=== PATIENT | female | born 1990 | race Caucasian/White ===

== ENCOUNTER → 2017-03-17 | Outpatient (CLI) | payer OTHER ==
[~2017-03-17] MED LIST: EPP3/2 IM; MTR600X PO; MULT-506 PO; OXYC-57 PO; SPR28 PO
[2017-03-17 16:43] LABS: BASO % 1.2 %; BASO ABS # 0.08 K/uL (0-0.2); COMPLETE YES; EOS % 3.5 %; HEMATOCRIT 39.5 % (37-47); IG% 0.1 %; LYMPH % 32.1 %; LYMPH ABS # 2.21 K/uL (1.2-3.4); MEAN CELL VOLUME 92.7 fL (80-100); MEAN CORPUSCULAR HEMOGLOBIN 31.2 pg (25-34); MEAN CORPUSCULAR HGB CONC 33.7 g/dl (32-36); MEAN PLATELET VOLUME 10.3 fL (7.4-10.4); MONO % 7.1 %; PLATELET COUNT 270 K/uL (130-400); RED BLOOD COUNT 4.26 M/uL (4.2-5.4); WHITE BLOOD COUNT 6.89 K/uL (4.8-10.8)
== END | disposition home or self-care (01) ==
LOC: C.LAB1850 15:16
PROVIDERS: ATTEND Obstetrics & Gynecology
DX: Z01.818 Encounter for other preprocedural examination (principal)

== ENCOUNTER 2017-04-05 07:12 | Day surgery (SDC) | payer OTHER ==
[2016-12-10 18:28] LABS: BASO ABS # 0.06 K/uL (0-0.2); COMPLETE YES; EOS % 5.6 %; HEMATOCRIT 39.5 % (37-47); IG% 0.2 %; LYMPH % 39.9 %; MEAN CELL VOLUME 93.4 fL (80-100); MEAN CORPUSCULAR HEMOGLOBIN 31.7 pg (25-34); MEAN CORPUSCULAR HGB CONC 33.9 g/dl (32-36); MEAN PLATELET VOLUME 10.4 fL (7.4-10.4); MONO % 7.3 %; PLATELET COUNT 238 K/uL (130-400); RED BLOOD COUNT 4.23 M/uL (4.2-5.4); WHITE BLOOD COUNT 6.02 K/uL (4.8-10.8)
[2016-12-10 18:45] LABS: BLOOD UREA NITROGEN 13 mg/dl (7-18); BUN/CREATININE RATIO 16.5 (10-20); CARBON DIOXIDE 31 mmol/L (21-32); CHLORIDE 108 mmol/L (98-107); CREATININE 0.82 mg/dl (0.60-1.20); GLUCOSE 97 mg/dl (70-99); POTASSIUM 4.2 mmol/L (3.5-5.1); SODIUM 143 mmol/L (136-145)
[~2017-04-05] VITALS: Ht 157.5 cm; Wt 75.9 kg
[~2017-04-05 07:12] MED LIST changes: +LACTATED RINGER'S 1000ML 1,000 ML IV SCH; -MTR600X PO; -OXYC-57 PO
[2017-04-05 07:45] VITALS: BP 133/80; PULSE 63; TEMP 36.6; O2SAT 98; Ht 157.5 cm; Wt 75.9 kg
[2017-04-05 07:47] VITALS: BP 133/80; PULSE 63; TEMP 36.6; O2SAT 98
--- NOTE | 2017-04-05 07:56 | History & Physical Bridge Note ---
H&P Re-Evaluation Bridge Note: I have examined the patient, reviewed the History & Physical and in the interval since the performance of the History & Physical I have noted the following changes of clinical significance: No changes noted
[2017-04-05] MEDS ORDERED: MIDAZOLAM HCL 1 MG/ML 2ML VIAL ONE (08:08)
[2017-04-05] MEDS ORDERED: DEXAMETHASONE SOD INJ 4 MG/ML VIAL ONE (08:08)
[2017-04-05] MEDS ORDERED: PROPOFOL IV EMULSION 10 MG/ML 20 ML VIAL IV ONE (08:08)
[2017-04-05] MEDS ORDERED: FENTANYL CITRATE INJ 50 MCG/1 ML 2 ML VIAL ONE ×3 (08:08→09:43)
[2017-04-05] MEDS ORDERED: ONDANSETRON INJ 2 MG/ML 2 ML VIAL ONE (08:08)
[2017-04-05] MEDS ORDERED: LIDOCAINE HCL 2% 2 ML VIAL (20MG/ML) ONE (08:08)
[2017-04-05] MEDS ORDERED: BUPIVACAINE 0.5 % 5 MG/1 ML MPF 30ML VIAL ONE (08:24)
[2017-04-05] MEDS ORDERED: ATROPINE SULFATE 0.1 MG/ML 5ML SYR IV PRN (09:00)
[2017-04-05] MEDS ORDERED: EpHEDrine SULFATE INJ 50 MG/ML AMP IV PRN (09:00)
[2017-04-05] MEDS ORDERED: FENTANYL CITRATE INJ 50 MCG/1 ML 2 ML VIAL IV PRN (09:00)
[2017-04-05] MEDS ORDERED: ONDANSETRON INJ 2 MG/ML 2 ML VIAL IV PRN ×2 (09:00→09:30)
[2017-04-05] MEDS ORDERED: SODIUM CHLORIDE 0.9% 1000ML 1,000 ML IV SCH (09:22)
[2017-04-05] MEDS ORDERED: OXYC-57 PO (09:24)
[2017-04-05] MEDS ORDERED: MTR600X PO (09:24)
--- NOTE | 2017-04-05 09:25 | Discharge Instructions ---
Discharge Instructions Date of Service Apr 05, 2017. Admission Reason for Admission: Pelvic Pain Discharge Discharge Diagnosis / Problem: pelvic pain Discharge Goals Goal(s): Routine recovery after surgery Activity Recommendations Activity Limitations: per Instructions/Follow-up section . Instructions / Follow-Up Instructions / Follow-Up ACTIVITY RECOMMENDATIONS: * Rest the first 2-3 days. You should be back to your normal activity levels by day 3. * No heavy lifting for 2 weeks. * No intercourse, tampons or douching for 1-2 weeks. * You may shower the next day. * Do not drive anytime that you are taking narcotic pain medicines. RETURN TO SCHOOL/WORK: * May return to school or work after 2-3 days. DIET: Nausea may occur in the immediate post-operative period. If so, take clear liquids such as tea, bouillon, apple juice until all nausea has subsided, then resume usual diet. MEDICATIONS: Resume previous medications unless instructed otherwise by your surgeon. Ibuprofen 200mg 2-3 tablets every 4-6 hours as needed -- OR -- Aleve 2 tablets every 8-12 hours as needed for post-operative discomfort Medications are over the counter. Tylenol may be used if above medications are contraindicated or not preferred. Medication should be taken with food or milk. Do not take on an empty stomach. SPECIAL CARE INSTRUCTIONS: * Check temperature twice daily for one week. report any elevation over 101 degrees. * You may experience some vagina spotting and/or bleeding. This is normal for 1 -2 weeks and should not be heavier than a normal period. If it is unusual in amount, call your physician. * Post-operative discomfort may consist of a sore throat, a "bloated" feeling and pain in the shoulders. these are normal symptoms, which usually only last for 2-3 days. * Remove band-aids tomorrow and shower. There is no need to replace band-aids unless there is drainage or discomfort. FOLLOW UP VISIT: Call your doctor's office for a post-operative 2 week visit if not already scheduled. Current Hospital Diet Patient's current hospital diet: Discharge Diet Recommended Diet: Regular Diet Procedures Procedures Performed: Diagnostic Laparoscopy Pending Studies Studies pending at discharge: no Medical Emergencies . Who to Call and When: Medical Emergencies: If at any time you feel your situation is an emergency, please call 911 immediately. . Non-Emergent Contact Non-Emergency issues call your: Online Advertising Director . . "Provider Documentation" section prepared by Everette Lopez. . VTE Core Measure Inpt VTE Proph given/why not?: Sanjiv Panda, FIDEL's
[2017-04-05] MEDS ORDERED: PROMETHAZINE HCL INJ 25 MG in SODIUM CHLORIDE 0.9% 50ML 50 ML IV PRN (09:30)
[2017-04-05] MEDS ORDERED: IBUPROFEN 600 MG TAB PO PRN (09:30)
[2017-04-05] MEDS ORDERED: KETOROLAC TROMETHAMINE 30 MG/ML VIAL IV. PRN (09:30)
[2017-04-05] MEDS ORDERED: OXYCODONE/ACETAMINOPHEN 5-325 TAB PO PRN ×2 (09:30)
[2017-04-05] MEDS ORDERED: ROCURONIUM BROMIDE 10 MG/ML 5 ML VIAL IV ONE (09:39)
[2017-04-05] MEDS ORDERED: KETOROLAC TROMETHAMINE 30 MG/ML VIAL ONE (09:42)
--- NOTE | 2017-04-05 09:44 | OPERATIVE REPORT ---
DATE OF OPERATION: 04/05/2017 PREOPERATIVE DIAGNOSIS: Pelvic pain. POSTOPERATIVE DIAGNOSIS: Pelvic pain. PROCEDURE: Diagnostic laparoscopy. SURGEON: Everette Lopez MD RESEARCH PSYCHOLOGIST: Dr. Layton, resident. ESTIMATED BLOOD LOSS: 5 mL. FINDINGS: Normal pelvis. SPECIMENS: None. DRAINS: None. ANESTHETIC: General. COMPLICATIONS: None. DISPOSITION: Recovery room. DESCRIPTION OF PROCEDURE: The patient was given a general anesthetic, prepped and draped in dorsal lithotomy position. Bladder drained with a Heller catheter and uterine manipulator was attached to the cervix. Gloves changed and a subumbilical incision made with scalpel. Using Tj technique, we cut down through subcutaneous fat to the fascia, splitting the rectus muscles and entering the peritoneal cavity. Blunt-tipped Tj trocar placed, balloon inflated. CO2 gas used to insufflate the abdomen. FINDINGS: Upper abdomen normal, no sign of visceral organ injury. Deep Trendelenburg position obtained. A left-sided robotic port was placed under direct visualization and then a probe used to manipulate findings. Anterior bladder flap normal, uterus normal, adnexa normal, small paratubal cysts on the right side. Otherwise physiologically normal. Pelvic sidewalls normal, cul-de-sac normal, uterosacrals normal. In summary, no evidence of endometriosis, prior infection or scarring or any abnormalities. Adnexa appeared normal as did the uterus. After this, we allowed the accessory port to be removed under visualization, removed the umbilical port. Gas was allowed to escape. Incision injected with 0.5% Marcaine. Fascia closed carefully on the umbilical incision and deep subcutaneous fat layers as well with 0 Vicryl and subcuticular 4-0 Monocryl closures and Dermabond applied. Sponge and instrument counts correct. I attest to the content of the Intraoperative Record and any orders documented therein. Any exception s are noted below.
--- NOTE | 2017-04-05 10:11 | Anesthesiology Progress Note ---
Anesthesia Post Op Note Date & Time Apr 05, 2017 at 10:11 Vital Signs Vital Signs Past 12 Hours Date Time Temp Pulse Resp B/P (MAP) Pulse Ox O2 Delivery O2 Flow Rate FiO2 04/05/17 09:32 36.3 104 16 153/90 100 Mask 10 04/05/17 07:47 36.6 63 18 133/80 (97) 98 Room Air 04/05/17 07:45 36.6 63 18 133/80 (97) 98 Room Air Notes Mental Status: alert / awake / arousable, participated in evaluation Pt Amnestic to Procedure: Yes Nausea / Vomiting: adequately controlled Pain: adequately controlled Airway Patency, RR, SpO2: stable & adequate BP & HR: stable & adequate Hydration State: stable & adequate Anesthetic Complications: no major complications apparent
[2017-04-05 10:25] VITALS: BP 123/68; PULSE 62; TEMP 36.9; O2SAT 100
[2017-04-05 10:55] VITALS: BP 135/67; PULSE 72; O2SAT 100
[2017-04-05] MEDS ORDERED: IBUPROFEN 600 MG TAB ONE (11:22)
[2017-04-05] MEDS ORDERED: OXYCODONE/ACETAMINOPHEN 5-325 TAB ONE (11:22)
[2017-04-05 11:25] VITALS: BP 125/65; PULSE 73; O2SAT 98
[2017-04-05 12:20] VITALS: BP 133/91; PULSE 84; TEMP 36.9; O2SAT 96
== END 2017-04-05 12:27 | disposition home or self-care (01) ==
LOC: C.ACU 07:12
PROVIDERS: ATTEND Obstetrics & Gynecology
DX: R10.2 Pelvic and perineal pain (principal); Z87.891 Personal history of nicotine dependence

== ENCOUNTER → 2017-06-18 | Outpatient (CLI) | payer OTHER ==
[~2017-06-18] MED LIST changes: -LACTATED RINGER'S 1000ML 1,000 ML IV SCH; +MTR600X PO; +OXYC-57 PO
== END | disposition home or self-care (01) ==
LOC: C.PAPS 14:43
PROVIDERS: ATTEND Obstetrics & Gynecology
DX: Z01.419 Encounter for gynecological examination (general) (routine) without abnormal findings (principal)